=== PATIENT | female | born 1950 ===

== ENCOUNTER → 2020-10-20 14:55 | Outpatient (CLI) | payer MEDICARE, SELFPAY ==
[2020-10-20 20:06] LABS: COVID19 - ORCAS (NP or Nasal) Negative (Negative)
== END ==
PROVIDERS: PCP Physician Assistant; Visit Provider Physician Assistant
DX: Z20.822 Contact with and (suspected) exposure to COVID-19 (principal)
CPT/HCPCS: C9803; U0003